=== PATIENT | female | born 1990 | race Two or more races ===

== ENCOUNTER 2016-08-04 09:43 | Emergency (ER) | payer MEDICAID ==
[~2016-08-04] VITALS: Ht 149.9 cm; Wt 49.9 kg
[~2016-08-04 09:43] MED LIST: AZITTAB11 PO; DEXTSYP35 PO
[2016-08-04 10:05] VITALS: BP 106/76
[2016-08-04] MEDS ORDERED: FAMOTIDINE (10MG/ML) 2ML VL IV ONE (10:15)
[2016-08-04] MEDS ORDERED: ONDANSETRON HCL 4 MG/2 ML VIAL IV ONE (10:15)
[2016-08-04] MEDS ORDERED: SODIUM CHLORIDE 0.9% 1,000 ML IVB ONE (10:15)
[2016-08-04 10:55] LABS: Hematocrit 45.9 % (36.0-46.0); Hemoglobin 14.8 g/dL (12.2-16.2); Mean Corpuscular Hemoglobin 28.3 pg (28.0-32.0); Mean Corpuscular Hgb Conc. 32.3 g/dL (32.0-36.0); Mean Corpuscular Volume 87.6 fL (80.0-100.0); Mean Platelet Volume 9.4 fL (7.4-10.4); Platelet Count (auto) 212 10^3/uL (140-450); Red Cell Distribution Width 13.4 % (11.6-16.0); SUSPECT VIEW TRANSMISSION; White Blood Cell 4.8 10^3/uL (4.4-10.8)
[2016-08-04 11:04] LABS: Metamyelocytes % 0; Myelocytes % 0; Promyelocytes % 0; Reactive Lymphocytes 0
[2016-08-04 11:11] LABS: Albumin 3.9 g/dL (3.4-5.0); Calcium 8.6 mg/dL (8.5-10.1); Potassium 3.8 mmol/L (3.5-5.1)
[2016-08-04 11:13] LABS: BUN/Creatinine Ratio 21.3
[2016-08-04 11:16] LABS: Bilirubin, Total 0.3 mg/dL (0.2-1.0); Total Protein 8.5 g/dL (6.4-8.2)
[2016-08-04 13:37] LABS: Giant Platelets Few; Platelet Estimate Adequate
== END 2016-08-04 13:11 | disposition home or self-care (01) ==
LOC: ER 09:44
DX: K52.9 Noninfective gastroenteritis and colitis, unspecified (principal); Z88.0 Allergy status to penicillin; Z88.6 Allergy status to analgesic agent
CPT/HCPCS: 36415; 80053; 81025; 83690; 85007; 85027; 85049; 96361; 96374; 96375; 99284; J2405; J3490; J7030

== ENCOUNTER 2016-12-01 07:48 | Emergency (ER) | payer MEDICAID ==
[~2016-12-01] VITALS: Ht 149.9 cm; Wt 52.2 kg
[2016-12-01 08:13] VITALS: BP 105/79
[2016-12-01] MEDS ORDERED: LIDOCAINE 1% HCL (LOCAL ANESTH.) INJ 20ML MDV ONE (08:19)
[2016-12-01] MEDS ORDERED: cefTRIAXone SOD 1,000 MG VL IM ONE (08:30)
== END 2016-12-01 08:54 | disposition home or self-care (01) ==
LOC: ER 07:48
DX: H66.93 Otitis media, unspecified, bilateral (principal); J02.9 Acute pharyngitis, unspecified; Z88.0 Allergy status to penicillin; Z88.6 Allergy status to analgesic agent
CPT/HCPCS: 96372; 99283; J0696; J2001

== ENCOUNTER 2017-04-05 06:57 | Emergency (ER) | payer MEDICAID ==
[~2017-04-05] VITALS: Ht 149.9 cm; Wt 56.2 kg
[2017-04-05 07:23] VITALS: BP 103/63
== END 2017-04-05 07:51 | disposition home or self-care (01) ==
LOC: ER 06:57
DX: O26.893 Other specified pregnancy related conditions, third trimester (principal); J02.9 Acute pharyngitis, unspecified; H66.92 Otitis media, unspecified, left ear; Z3A.34 34 weeks gestation of pregnancy; Z88.0 Allergy status to penicillin; Z88.8 Allergy status to other drugs, medicaments and biological substances

== ENCOUNTER 2018-01-04 06:00 | Emergency (ER) | payer MEDICAID ==
[~2018-01-04] VITALS: Ht 149.9 cm; Wt 47.2 kg
[2018-01-04 06:41] VITALS: BP 142/72
== END 2018-01-04 07:37 | disposition home or self-care (01) ==
LOC: ER 06:00
DX: J03.90 Acute tonsillitis, unspecified (principal); Z88.0 Allergy status to penicillin; Z88.8 Allergy status to other drugs, medicaments and biological substances

== ENCOUNTER 2018-10-01 08:47 | Emergency (ER) | payer MEDICAID ==
[~2018-10-01] VITALS: Ht 149.9 cm; Wt 56.7 kg
[2018-10-01 10:13] VITALS: BP 106/72
== END 2018-10-01 10:46 | disposition home or self-care (01) ==
LOC: ER 08:55
DX: H66.93 Otitis media, unspecified, bilateral (principal); J02.9 Acute pharyngitis, unspecified; Z88.0 Allergy status to penicillin; Z79.2 Long term (current) use of antibiotics

== ENCOUNTER 2018-10-31 16:05 | Emergency (ER) | payer MEDICAID ==
[~2018-10-31] VITALS: Ht 149.9 cm; Wt 56.7 kg
[2018-10-31 16:12] VITALS: BP 118/73
[2018-10-31] MEDS ORDERED: cefTRIAXone SOD 1,000 MG VL IM ONE (17:30)
== END 2018-10-31 17:57 | disposition home or self-care (01) ==
LOC: ER 16:05
DX: J03.90 Acute tonsillitis, unspecified (principal); Z79.899 Other long term (current) drug therapy
CPT/HCPCS: 96372; 99283; J0696

== ENCOUNTER 2019-05-19 07:06 | Emergency (ER) | payer MEDICAID ==
[~2019-05-19] VITALS: Ht 149.9 cm; Wt 57.2 kg
[2019-05-19 07:51] VITALS: BP 129/71
== END 2019-05-19 08:15 | disposition home or self-care (01) ==
LOC: ER 07:06
DX: J06.9 Acute upper respiratory infection, unspecified (principal)

== ENCOUNTER 2019-10-03 06:24 | Emergency (ER) | payer MEDICAID ==
[~2019-10-03] VITALS: Ht 149.9 cm; Wt 60.8 kg
[2019-10-03 06:38] VITALS: BP 120/68
[2019-10-03] MEDS ORDERED: cefTRIAXone SOD 1,000 MG VL IM ONE (07:45)
[2019-10-03] MEDS ORDERED: LIDOCAINE 1% HCL (LOCAL ANESTH.) INJ 20ML MDV IJ ONE (07:45)
== END 2019-10-03 08:01 | disposition home or self-care (01) ==
LOC: ER 06:24
DX: J03.90 Acute tonsillitis, unspecified (principal)
CPT/HCPCS: 96372; 99283; J0696; J2001

== ENCOUNTER 2020-03-30 07:17 | Emergency (ER) | payer MEDICAID ==
[~2020-03-30] VITALS: Ht 149.9 cm; Wt 63.5 kg
[2020-03-30 07:39] VITALS: BP 107/69
[2020-03-30] MEDS ORDERED: KETOROLAC TROMETH 60MG/2ML VIAL IM ONE (09:15)
== END 2020-03-30 09:27 | disposition home or self-care (01) ==
LOC: ER 07:17
DX: G44.209 Tension-type headache, unspecified, not intractable (principal); M62.838 Other muscle spasm; R11.2 Nausea with vomiting, unspecified
CPT/HCPCS: 70450; 96372; 99284; J1885

== ENCOUNTER 2020-11-29 05:50 | Emergency (ER) | payer MEDICAID ==
[~2020-11-29] VITALS: Ht 149.9 cm; Wt 61.2 kg
[2020-11-29 06:42] LABS: Urine Bacteria MOD /hpf (None Seen); Urine Blood 2+ /uL (Negative); Urine Mucus FEW (None Seen); Urine Specific Gravity 1.021 (1.001-1.035); Urine WBC 1161 /hpf (0 - 5); Urine WBC Clumps PRESENT /hpf (None Seen)
[2020-11-29 07:43] VITALS: BP 111/76
[2020-11-29] MEDS ORDERED: cefTRIAXone W LIDOCAINE 1 GM IM IM ONE (07:45)
== END 2020-11-29 07:53 | disposition home or self-care (01) ==
LOC: ER 05:50
DX: N39.0 Urinary tract infection, site not specified (principal); Z79.2 Long term (current) use of antibiotics; Z79.899 Other long term (current) drug therapy
CPT/HCPCS: 81001; 99283; J0696

== ENCOUNTER 2020-12-24 06:01 | Emergency (ER) | payer MEDICAID ==
[~2020-12-24] VITALS: Ht 149.9 cm; Wt 61.2 kg
[2020-12-24 06:44] LABS: Basophils # (auto) 0.1 10 ^3/uL (0-0.2); Eosinophils # (auto) 0.1 10 ^3/uL (0-0.8); Hematocrit 34.1 % (36.0-46.0); Hemoglobin 11.3 g/dL (12.2-16.2); Lymphocytes # (auto) 1.9 10 ^3/uL (0.4-5.4); Lymphocytes % (auto) 24.5 % (10.0-50.0); Mean Corpuscular Hemoglobin 27.7 pg (28.0-32.0); Mean Corpuscular Volume 83.9 fL (80.0-100.0); Monocytes # (auto) 0.5 10 ^3/uL (0-1.3); Monocytes % (auto) 6.6 % (0.0-12.0); Neutrophils # (auto) 5.2 10 ^3/uL (1.6-8.6); Neutrophils % (auto) 66.9 % (37.0-80.0); Nucleated Red Blood Cells % 0.1 %; Platelet Count (auto) 364 10^3/uL (140-450); Red Blood Cells 4.07 10^6/uL (4.0-5.20); Red Cell Distribution Width 15.4 % (11.8-14.3); White Blood Cell 7.8 10^3/uL (4.4-10.8)
[2020-12-24 07:10] LABS: Albumin 3.5 g/dL (3.4-5.0); Anion Gap 6 (5-15); Blood Urea Nitrogen 9 mg/dL (7-18); Calcium 8.6 mg/dL (8.5-10.1); Carbon Dioxide 26 mmol/L (21-32); Chloride 108 mmol/L (98-107); Glucose 94 mg/dL (74-106); Potassium 4.2 mmol/L (3.5-5.1); Sodium 140 mmol/L (136-145)
[2020-12-24 07:15] LABS: Alanine Aminotransferase 18 U/L (13-56); Alkaline Phosphatase 58 U/L (45-117); Aspartate Aminotransferase 16 U/L (15-37); BUN/Creatinine Ratio 11.3; Bilirubin, Total 0.3 mg/dL (0.2-1.0); GFR African American 108 mL/min; GFR Non-African American 89 mL/min; Total Protein 7.4 g/dL (6.4-8.2)
[2020-12-24] MEDS ORDERED: ASPirin 81 mg TAB PO ONE (07:15)
[2020-12-24] MEDS ORDERED: SODIUM CHLORIDE 0.9% 1,000 ML IV ONE (07:15)
[2020-12-24] MEDS ORDERED: KETOROLAC TROMETH 60MG/2ML VIAL IM ONE (08:00)
[2020-12-24 08:35] LABS: Urine Bacteria NONE SEEN /hpf (None Seen); Urine Blood 2+ /uL (Negative); Urine Mucus FEW (None Seen); Urine Specific Gravity 1.014 (1.001-1.035); Urine WBC 1 /hpf (0 - 5)
[2020-12-24 10:08] VITALS: BP 102/61
== END 2020-12-24 10:41 | disposition home or self-care (01) ==
LOC: ER 06:01
DX: R07.89 Other chest pain (principal); G43.909 Migraine, unspecified, not intractable, without status migrainosus; F41.1 Generalized anxiety disorder; Z98.890 Other specified postprocedural states
CPT/HCPCS: 36415; 71046; 80053; 81001; 81025; 83735; 84443; 84484; 85025; 93005; 96360; 96372; 99285; J1885; J7030

== ENCOUNTER 2021-02-09 06:19 | Emergency (ER) | payer MEDICAID ==
[~2021-02-09] VITALS: Ht 149.9 cm; Wt 61.2 kg
[2021-02-09 06:32] VITALS: BP 118/85
== END 2021-02-09 07:09 | disposition home or self-care (01) ==
LOC: ER 06:19
DX: J03.90 Acute tonsillitis, unspecified (principal); Z20.822 Contact with and (suspected) exposure to COVID-19
CPT/HCPCS: 36415; 71045; 87426

== ENCOUNTER 2025-05-01 10:24 | Emergency (ER) | payer MEDICAID ==
[~2025-05-01] VITALS: Ht 149.9 cm; Wt 63.8 kg
[2025-05-01 11:11] LABS: Hematocrit 38.7 % (36.0-46.0); Hemoglobin 12.6 g/dL (12.2-16.2); Mean Corpuscular Hemoglobin 28.6 pg (28.0-32.0); Mean Corpuscular Volume 87.9 fL (80.0-100.0); Nucleated Red Blood Cells % 0.1 %
--- NOTE | 2025-05-01 11:13 | ED.PDOC ---
History of Present Illness HPI Comments A 34 YEAR OLD FEMALE PRESENTS TO THE ED WITH COMPLAINT OF INCREASED ANXIETY X 2 WEEKS. PATIENT REPORTS SIGNIFICANT PSYCHOSOCIAL STRESSORS SECONDARY TO HER SON'S ADHD. SHE DESCRIBES THE SON'S INCREASED ENERGY AND ACTIVITY DIFFICULT TO MANAGE AT TIMES, CAUSING ASSOCIATED DIZZINESS. SHE IS CURRENTLY IN FAMILY THERAPY FOR STRESS MANAGEMENT. PATIENT DENIES SI/HI, FEVER, CHILLS, SHORTNESS OF BREATH, CHEST PAIN, ABDOMINAL PAIN, NAUSEA, VOMITING, HEADACHE, OR OTHER COMPLAINTS. NO OTHER SYMPTOMS OR MODIFYING FACTORS AT THIS TIME. PATIENT IS ALERT, ORIENTED X 4, AND HAS STEADY GAIT. Chief Complaint: Anxiety Time Seen by MD: 11:00 Primary Care Provider: OSWALDO Gray Notes: Nurses Notes, Medications, Allergies Allergies: Coded Allergies: NO KNOWN ALLERGIES (Unverified , 10/03/19) Home Meds Active Scripts Hydroxyzine Hcl (Hydroxyzine Hcl) 50 Mg Tab, 1 TAB PO QPM, #30 TAB Prov:OSVALDO FERNANDEZ 05/01/25 Dextromethorphan-Guaifenesin (Guaifenesin-Dm) Dm Syp, 10 ML PO Q4HP, #120 ML 0 Refills Prov:NOVA RUBIN 08/07/13 Azithromycin (Zithromax Z-Romero) 1 Tab Tab, 1 TAB PO DAILY, #6 TAB 0 Refills take 2 tabs on day one, the 1 tab daily for 4 days Prov:NOVA RUBIN 08/07/13 Information Source: Patient Mode of Arrival: Ambulatory Severity: Mild, Moderate Timing: Weeks (2) Duration: Since onset Prehospital treatment: Treatment Medication Refill: For: Other (ANXIETY REACTION ) Location: GENERAL Associated signs and symptoms DIZZINESS AND ANXIETY Past Medical History PAST MEDICAL HISTORY: Anxiety, High Lipids Surgical History: SCIENTIFIC AIDE History: No Pertinent SCIENTIFIC AIDE History Family History Family History: Reviewed,noncontributory to illness Social History Smoker: Non-Smoker Alcohol: Occasionally Drugs: Denies Drug Use Lives In: Home Constitutional: reports: others (ANXIOUS ); denies: chills, diaphoresis, fatigue, fever, malaise, sweats, weakness EENTM: denies: blurred vision, double vision, ear bleeding, ear discharge, ear drainage, ear pain, ear ringing, eye pain, eye redness, hearing loss, mouth pain, mouth swelling, nasal discharge, nose bleeding, nose congestion, nose pain, photophobia, tearing, throat pain, throat swelling, voice changes, others Respiratory: denies: cough, hemoptysis, orthopnea, SOB at rest, shortness of breath, SOB with excertion, stridor, wheezing, others Cardiovascular: denies: chest pain, dizzy spells, diaphoresis, Dyspnea on exertion, edema, irregular heart beat, left arm pain, lightheadedness, palpitations, PND, syncope, others Gastrointestinal: denies: abdomen distended, abdominal pain, blood streaked bowels, constipated, diarrhea, dysphagia, difficulty swallowing, hematemesis, melena, nausea, poor appetite, poor fluid intake, rectal bleeding, rectal pain, vomiting, others Genitourinary: denies: abnormal vagina bleeding, burning, dyspareunia, dysuria, flank pain, frequency, hematuria, incontinence, pain, , vagina discharge, urgency, others Neurological: reports: dizziness; denies: fainting, headache, left sided numbness, left sided weakness, numbness, paresthesia, pre-existing deficit, right sided numbness, right sided weakness, seizure, speech problems, tingling, tremors, weakness, others Musculoskeletal: denies: back pain, gout, joint pain, joint swelling, muscle pain, muscle stiffness, neck pain, others Integumetry: denies: bruises, change in color, change in hair/nails, dryness, laceration, lesions, lumps, rash, wounds, others Allergic/Immunocompromised: denies: Difficulty Healing, Frequent Infections, Hives, Itching, others Hematologic/Lymphatic: denies: anemia, blood clots, easy bleeding, easy bruising, swollen glands, others Endocrine: denies: excessive hunger, excessive sweating, excessive thirst, excessive urination, flushing, intolerance to cold, intolerance to heat, unexplained weight gain, unexplained weight loss, others Psychiatric: reports: anxiety; denies: bipolar disorder, depression, hopeless, panic disorder, schizophrenia, sleepless, suicidal, others All Other Systems: Reviewed and Negative Physical Exam General Appearance: Mild Distress, Normal, Other (ANXIETY AND ANXIOUS ) HEENT: Normal ENT Inspection, Pharynx Normal, TMs Normal Neck: Full Range of Motion, Non-Tender, Normal, Normal Inspection Respiratory: Chest Non-Tender, Lungs Clear, No Accessory Muscle Use, No Respiratory Distress, Normal Breath Sounds Cardiovascular: No Edema, No JVD, No Murmur, No Gallop, Normal Peripheral Pulses, Regular Rate/Rhythm Breast Exam: Deferred Gastrointestinal: No Organomegaly, Non Tender, No Pulsatile Mass, Normal Bowel Sounds, Soft Genitalia: Deferred Pelvic: Deferred Rectal: Deferred Extremities: No calf tenderness, Normal capillary refill, Normal inspection, Normal range of motion, Non-tender, No pedal edema Musculoskeletal : Apperance: Normal Neurologic: Alert, tile roofer II-XII nml as Tested, No Motor Deficits, Normal Affect, Normal Mood, No Sensory Deficits Cerebellar Function: Normal Reflexes: Normal Skin: Dry, Normal Color, Warm Peripheral Pulses: 2+ carotid (R), 2+ carotid (L) Lymphatic: No Adenopathy Was a procedure done? Was a procedure done?: No Differential Dx Considerations may include: ANXIETY, DEHYDRATION, ELECTROLYTE IMBALANCE X-Ray, Labs, Meds, VS Vital Signs Date Time Temp Pulse Resp B/P (MAP) Pulse Ox O2 Delivery O2 Flow Rate FiO2 05/01/25 11:19 75 18 97 Room Air 05/01/25 11:19 98.4 75 18 108/67 (81) 97 98.4 05/01/25 10:31 98.1 80 16 125/64 100 98.1 Lab Test 05/01/25 11:17 05/01/25 10:46 Range/Units Urine Color Light-yellow Yellow Urine Clarity Clear Clear Urine pH 6.5 5.0-9.0 Urine Specific [place] 1.017 1.001-1.035 Urine Protein Negative Negative Urine Ketones Negative Negative Urine Blood 2+ H Negative /uL Urine Nitrite Negative Negative Urine Bilirubin Negative Negative Urine Urobilinogen Normal Negative mg/dL Urine Leukocyte Esterase Negative Negative /uL Urine RBC 15 0 - 4 /hpf Urine Microscopic WBC 1 0-5 /HPF Urine Squamous Epithelial Cells Few <5 /hpf Urine Bacteria None seen None Seen /hpf Urine Glucose Normal Normal mg/dL White Blood Count 9.3 4.4-10.8 10^3/uL Red Blood Count 4.40 4.0-5.20 10^6/uL Hemoglobin 12.6 12.2-16.2 g/dL Hematocrit 38.7 36.0-46.0 % Mean Corpuscular Volume 87.9 80.0-100.0 fL Mean Corpuscular Hemoglobin 28.6 28.0-32.0 pg Mean Corpuscular Hemoglobin Concent 32.6 32.0-36.0 g/dL Red Cell Distribution Width 13.5 11.8-14.3 % Platelet Count 297 140-450 10^3/uL Mean Platelet Volume 8.8 6.9-10.8 fL Neutrophils (%) (Auto) 75.2 37.0-80.0 % Lymphocytes (%) (Auto) 16.8 10.0-50.0 % Monocytes (%) (Auto) 6.9 0.0-12.0 % Eosinophils (%) (Auto) 0.5 0.0-7.0 % Basophils (%) (Auto) 0.6 0.0-2.0 % Neutrophils # (Auto) 7.0 1.6-8.6 10 ^3/uL Lymphocytes # (Auto) 1.6 0.4-5.4 10 ^3/uL Monocytes # (Auto) 0.6 0-1.3 10 ^3/uL Eosinophils # (Auto) 0 0-0.8 10 ^3/uL Basophils # (Auto) 0.1 0-0.2 10 ^3/uL Nucleated Red Blood Cells 0.1 % Sodium Level 141 136-145 mmol/L Potassium Level 4.2 3.5-5.1 mmol/L Chloride Level 104 98-107 mmol/L Carbon Dioxide Level 28 20-31 mmol/L Anion Gap 9 5-15 Blood Urea Nitrogen 12 9-23 mg/dL Creatinine 0.96 0.550-1.02 mg/dL Glomerular Filtration Rate Calc 79 >90 mL/min BUN/Creatinine Ratio 12.5 10.0-20.0 Serum Glucose 85 74-106 mg/dL Calcium Level 9.3 8.7-10.4 mg/dL Troponin I High Sensitivity < 3 L </=34 ng/L X-Ray, Labs, Meds, VS Comment EXTERNAL MEDICAL RECORDS REVIEWED: [NONE] INDEPENDENT HISTORIANS: [NONE] SOCIAL DETERMINANTS OF HEALTH: [NONE] LABS ORDERED: CBC, BMP, TROPONIN AND UA REVIEWED AND INTERPRETED RESULTS: NONE IMAGING ORDERED: NONE TREATMENTS ORDERED: PT DECLINED MEDICATION. PROCEDURES PERFORMED: NONE CRITICAL CARE TIME: NONE I HAVE DISCUSSED THE PATIENT WITH THE ATTENDING PHYSICIAN, DR. ISLAS, HE AGREES WITH THE PATIENT'S PLAN OF CARE AND DISPOSITION. BASED ON HISTORY OF PRESENT ILLNESS, AND PHYSICAL EXAM, PATIENT WILL BE DISCHARGED HOME. DISCUSSED PLAN FOR DISCHARGE HOME WITH RX [[facility] 50MG ]. MEDICATION WARNINGS GIVEN. SHARED DECISION MAKING: DISCUSSED WITH PATIENT THAT THEIR WORKUP WAS NORMAL. PATIENT INSTRUCTED TO FOLLOW UP WITH PRIMARY CARE PROVIDER IN 1-2 DAYS FOR RE- EVALUATION OF SYMPTOMS. PATIENT VERBALIZES UNDERSTANDING TO RETURN TO ED FOR NEW OR WORSENING SYMPTOMS OR IF FOLLOW UP WITH PCP CANNOT BE OBTAINED. PATIENT FEELS COMFORTABLE GOING HOME AT THIS TIME. ALL QUESTIONS ADDRESSED AT TIME OF DISCHARGE. Time of 1ST Reevaluation: 11:13 Reevaluation 1ST: Improved Patient Education/Counseling: Diagnosis, Treatment, Need For Follow Up Family Education/Counseling: Diagnosis, Treatment, No Family Present Medical Screening: No EMC Exist At This Time SEPSIS Sepsis Screen Date sepsis recognized/suspect: May 01, 2025 Time Sepsis recognized/suspect: 1033 Recent Procedure: No On Antibiotic Therapy: No Respiratory Rate >20: No Heart Rate >90: No Temp<36 C (96.8 F) or >38.3 C: No SBP <90 or MAP <65 mmHG: No New Acute Mental Status Change: No Is the patient on CPAP, BIPAP,: No Vital Signs Date Time Temp Pulse Resp B/P (MAP) Pulse Ox O2 Delivery O2 Flow Rate FiO2 05/01/25 11:19 75 18 97 Room Air 05/01/25 11:19 98.4 75 18 108/67 (81) 97 98.4 05/01/25 10:31 98.1 80 16 125/64 100 98.1 Laboratory Tests Test 05/01/25 10:46 White Blood Count 9.3 10^3/uL (4.4-10.8) Departure 1 Departure Time of Disposition: 12:10 Impression: Primary Impression: Anxiety in acute stress reaction Disposition: HOME / SELF CARE / HOMELESS Condition: Stable Additional Instructions: F/U PCP IN 2 DAYS RECHECK. IF CONDITION BECOME WORSE, RETURN TO ED [facility]. e-Prescriptions Hydroxyzine Hcl (Hydroxyzine Hcl) 50 Mg Tab 1 TAB PO QPM, #30 TAB Prov: OSVALDO FERNANDEZ 05/01/25 Discharged With: Self Critical Care Note Critical Care Time?: No Stability Stability form required: No I personally scribed for OSVALDO FERNANDEZ ([email or web address]) on 05/01/25 at 11:13. Electronically submitted by Bri Beal ([facility]). OSVALDO FERNANDEZ May 01, 2025 11:13
[2025-05-01 11:19] LABS: Chloride 104 mmol/L (98-107); Potassium 4.2 mmol/L (3.5-5.1); Sodium 141 mmol/L (136-145)
[2025-05-01 11:21] LABS: Anion Gap 9 (5-15); Calcium 9.3 mg/dL (8.7-10.4); Carbon Dioxide 28 mmol/L (20-31)
[2025-05-01 11:26] LABS: BUN/Creatinine Ratio 12.5 (10.0-20.0); Blood Urea Nitrogen 12 mg/dL (9-23); Glucose 85 mg/dL (74-106)
[2025-05-01 11:42] LABS: Urine Protein, UAD Negative (Negative)
[2025-05-01] MEDS ORDERED: HYDR50TA69 PO (12:08)
[2025-05-01 12:15] VITALS: BP 115/64; PULSE 76; RESP 16; TEMP 98.4; O2SAT 97
== END 2025-05-01 12:20 | disposition home or self-care (01) ==
LOC: ER 10:24
DX: F43.0 Acute stress reaction (principal); F10.90 Alcohol use, unspecified, uncomplicated; E78.5 Hyperlipidemia, unspecified; Z79.899 Other long term (current) drug therapy; Z98.890 Other specified postprocedural states; Y90.9 Presence of alcohol in blood, level not specified
CPT/HCPCS: 36415; 80048; 81001; 84484; 85025

== ENCOUNTER 2025-06-29 08:01 | Emergency (ER) | payer MEDICAID ==
[~2025-06-29] VITALS: Ht 149.9 cm; Wt 64.1 kg
[~2025-06-29 08:01] MED LIST changes: +HYDR50TA69 PO
[2025-06-29 09:07] VITALS: BP 114/66; PULSE 89; RESP 16; TEMP 98.7; O2SAT 98
[2025-06-29] MEDS ORDERED: METH-1181 PO (09:30)
[2025-06-29] MEDS ORDERED: NAPR-746 PO (09:30)
[2025-06-29] MEDS ORDERED: LIDO5DIS21 TOP (09:30)
--- NOTE | 2025-06-29 09:31 | ED.PDOC ---
Back pain HPI HPI Comments The patient with a history of autoinflammation, and fibroids presents for evaluation of sharp pain in the left neck and shoulder blade radiating to the head, ongoing for 4 days prior to this visit. The pain is described as shooting and warm, with tightness in the upper neck and shoulder blade. The pain worsens with movement and may improve somewhat with rest or lying down but has not resolved with compressions. The patient reports associated headache, fatigue. There is no history of trauma, heavy lifting, or injury preceding the onset. The patient has a history of migraine The patient has an IUD and has not had a menstrual period for 2 years. Chief Complaint: Neck Pain Time Seen by MD: 08:19 Primary Care Provider: OSWALDO Gray Notes: Nurses Notes, Medications, Allergies Allergies: Coded Allergies: NO KNOWN ALLERGIES (Unverified , 10/03/19) Home Meds Active Scripts Hydroxyzine Hcl (Hydroxyzine Hcl) 50 Mg Tab, 1 TAB PO QPM, #30 TAB Prov:OSVALDO FERNANDEZ 05/01/25 Dextromethorphan-Guaifenesin (Guaifenesin-Dm) Dm Syp, 10 ML PO Q4HP, #120 ML 0 Refills Prov:NOVA RUBIN 08/07/13 Azithromycin (Zithromax Z-Romero) 1 Tab Tab, 1 TAB PO DAILY, #6 TAB 0 Refills take 2 tabs on day one, the 1 tab daily for 4 days Prov:NOVA RUBIN 08/07/13 Information Source: Patient Mode of Arrival: Ambulatory Past Medical History PAST MEDICAL HISTORY: Anxiety, High Lipids Surgical History: PUTTYING AND CALKING SUPERVISOR History: No Pertinent PUTTYING AND CALKING SUPERVISOR History Family History Family History: Reviewed,noncontributory to illness Social History Smoker: Non-Smoker Alcohol: Occasionally Drugs: Denies Drug Use Lives In: Home Physical Exam General Appearance: No Apparent Distress, Normal HEENT: Normal ENT Inspection, Pharynx Normal, TMs Normal, Other (Head is no rmocephalic atraumatic. No deformity to the neck region. No midline tenderness. No bony step-offs on palpation. Complains of subjective pain with lateral movements. Spurling test positive. Matos test on the left upper extremity was positive. Radial pulses 2+. Bilateral strains 5/5.) Neck: Full Range of Motion, Non-Tender, Normal, Normal Inspection Respiratory: Chest Non-Tender, Lungs Clear, No Accessory Muscle Use, No Respiratory Distress, Normal Breath Sounds Cardiovascular: No Edema, No JVD, No Murmur, No Gallop, Normal Peripheral Pulses, Regular Rate/Rhythm Breast Exam: Deferred Gastrointestinal: No Organomegaly, Non Tender, No Pulsatile Mass, Normal Bowel Sounds, Soft Genitalia: Deferred Pelvic: Deferred Rectal: Deferred Extremities: No calf tenderness, Normal capillary refill, Normal inspection, Normal range of motion, Non-tender, No pedal edema Musculoskeletal : Apperance: Normal Neurologic: Alert, web site project manager II-XII nml as Tested, No Motor Deficits, Normal Affect, Normal Mood, No Sensory Deficits Cerebellar Function: Normal Reflexes: Normal Skin: Dry, Normal Color, Warm Lymphatic: No Adenopathy Was a procedure done? Was a procedure done?: No Back Pain Differential Dx Differential Diagnosis: Other X-Ray, Labs, Meds, VS Vital Signs Date Time Temp Pulse Resp B/P (MAP) Pulse Ox O2 Delivery O2 Flow Rate FiO2 06/29/25 09:07 98.7 89 16 114/66 (82) 98 98.7 06/29/25 09:07 89 16 98 Room Air 06/29/25 08:03 97.8 89 16 114/66 98 97.8 X-Ray, Labs, Meds, VS Comment Exam is notable for positive Spurling's and Matos tests, supporting a diagnosis of cervical radiculopathy/nerve impingement without evidence of acute neurological compromise. ED Workup: Defer C-Spine imaging given negative by NEXUS criteria Patient appears to be low risk for complications or other emergent conditions such as anginal equivalent, ashley cervical instability, arterial dissection, osteomyelitis, epidural abscess, central cord syndrome, c-spine fracture, CVA, other spinal emergencies Findings of sharp, radiating neck and shoulder pain, subjective left arm weakness, and positive Spurling's and Matos tests are consistent with cervical radiculopathy. No evidence of acute cord compromise. - Administered steroid injection (Solu Medrol) and offered Toradol injection. - Prescribed ibuprofen and a muscle relaxant for nighttime use. - Advised use of warm compresses and stretching as tolerated. - Instructed to follow up with primary care provider for further workup if symptoms persist or worsen. - Advised to return for re-evaluation if symptoms do not improve. Time of Reevaluation: 09:28 Reevaluation 1ST: Improved Patient Education/Counseling: Diagnosis, Treatment Family Education/Counseling: Diagnosis, Treatment SEPSIS Sepsis Screen Date sepsis recognized/suspect: Jun 29, 2025 Time Sepsis recognized/suspect: 0807 Recent Procedure: No On Antibiotic Therapy: No Respiratory Rate >20: No Heart Rate >90: Yes Temp<36 C (96.8 F) or >38.3 C: No SBP <90 or MAP <65 mmHG: No New Acute Mental Status Change: No Is the patient on CPAP, BIPAP,: No Vital Signs Date Time Temp Pulse Resp B/P (MAP) Pulse Ox O2 Delivery O2 Flow Rate FiO2 06/29/25 09:07 98.7 89 16 114/66 (82) 98 98.7 06/29/25 09:07 89 16 98 Room Air 06/29/25 08:03 97.8 89 16 114/66 98 97.8 Departure 1 Departure Time of Disposition: 09:29 Impression: Primary Impression: Cervical radiculopathy Disposition: HOME / SELF CARE / HOMELESS Condition: Stable e-Prescriptions Lidocaine (LIDODERM 5% TOPICAL PATCH) 1 Patch Ph 1 PATCH TOP DAILY for 30 Days, #30 PATCH 0 Refills Prov: GEOFF CHRISTINE NP 06/29/25 Methocarbamol (Methocarbamol) 500 Mg Tab 500 MG PO Q8HP PRN for 10 Days, #30 TAB 0 Refills Prov: GEOFF CHRISTINE NP 06/29/25 Naproxen (Naproxen) 500 Mg Tab 500 MG PO BIDPC for 10 Days, #20 TAB 0 Refills Prov: GEOFF CHRISTINE NP 06/29/25 Discharged With: Self Critical Care Note Critical Care Time?: No Stability Stability form required: No Heart Score Heart Score: Heart Score Response (Comments) Value History N/A 0 EKG N/A 0 Age N/A 0 Risk Factors N/A 0 Troponin N/A 0 Total 0 GEOFF CHRISTINE NP Jun 29, 2025 09:31
[2025-06-29] MEDS: KETOROLAC TROMETH 60MG/2ML VIAL IM ONE (09:39)
[2025-06-29] MEDS: methylPREDNISolone SOD SUCC 125 MG/2 ML VL IM ONE (09:39)
== END 2025-06-29 09:42 | disposition home or self-care (01) ==
LOC: ER 08:01
DX: M54.12 Radiculopathy, cervical region (principal); F10.90 Alcohol use, unspecified, uncomplicated; F41.9 Anxiety disorder, unspecified; E78.5 Hyperlipidemia, unspecified; Z79.899 Other long term (current) drug therapy
CPT/HCPCS: 96372; 99284; J1885; J2919